=== PATIENT | female | born 1945 | race African-American/Black ===

== ENCOUNTER → 2016-11-04 | Outpatient (CLI) | payer MEDICARE, OTHER | LOC: RAD 12:30 | PROVIDERS: ATTEND Internal Medicine | DX: R51 Headache (principal) | CPT/HCPCS: 70450 ==

== ENCOUNTER → 2017-01-23 | Outpatient (CLI) | payer MEDICARE, OTHER | LOC: OD 13:57 | PROVIDERS: ATTEND Internal Medicine | DX: J18.9 Pneumonia, unspecified organism (principal) | CPT/HCPCS: 71020 ==

== ENCOUNTER 2017-05-05 17:02 | Inpatient (IN) | payer MEDICARE, OTHER ==
[2017-05-05] MEDS ORDERED: NORMAL SALINE 1000 ML 1,000 ML IV PRN ×2 (17:56→20:56)
[2017-05-05 18:39] LABS: HEMATOCRIT 39.3 % (36.0-47.0); HGB HCT DIFFERENCE -0.3; MEAN CORPUSCULAR HEMOGLOBIN 30.6 pg (27.0-33.4); MEAN CORPUSCULAR HGB CONC 33.2 g/dL (32.0-36.0); MEAN CORPUSCULAR VOLUME 92 fl (80-97); RED BLOOD COUNT 4.26 10^6/uL (3.72-5.28); RED CELL DISTRIBUTION WIDTH 13.8 % (11.5-14.0); WHITE BLOOD COUNT 13.7 10^3/uL (4.0-10.5)
[2017-05-05 18:55] LABS: ALANINE AMINOTRANSFERASE 38 U/L (9-52); ALBUMIN 4.1 g/dL (3.5-5.0); ALKALINE PHOSPHATASE 107 U/L (38-126); ANION GAP 13 (5-19); ASPARTATE AMINO TRANSFERASE 32 U/L (14-36); BILIRUBIN,DIRECT 0.4 mg/dL (0.0-0.4); BILIRUBIN,TOTAL 1.3 mg/dL (0.2-1.3); BLOOD UREA NITROGEN 16 mg/dL (7-20); CARBON DIOXIDE 24 mmol/L (22-30); CHLORIDE 100 mmol/L (98-107); CREATININE RESULT 0.94 mg/dL (0.52-1.25); GLUCOSE 161 mg/dL (75-110); POTASSIUM 3.3 mmol/L (3.6-5.0); SODIUM 136.8 mmol/L (137-145)
--- NOTE | 2017-05-05 19:21 | RADIOLOGY REPORT (SQ) ---
EXAM DESCRIPTION: CT ABD/PELVIS NO ORAL OR IV COMPLETED DATE/TIME: 05/05/2017 6:54 pm REASON FOR STUDY: ABDOMEN PAIN COMPARISON: None. TECHNIQUE: CT scan of the abdomen and pelvis performed without intravenous or oral contrast. Images reviewed with lung, soft tissue, and bone windows. Reconstructed coronal and sagittal MPR images revi ewed. All images stored on PACS. All CT scanners at this facility use dose modulation, iterative reconstruction, and/or weight based d osing when appropriate to reduce radiation dose to as low as reasonably achievable (ALARA). [facility]: Dose Right [facility]: CareDose [facility]: Dose Right [facility]: Teradose 4D [facility]: Smart i[employer] RADIATION DOSE: Up-to-date CT equipment and radiation dose reduction techniques were employed. CTDIv ol: 7.3 mGy. DLP: 343 mGy-cm.mGy. LIMITATIONS: None. FINDINGS: LOWER CHEST: No significant findings. No nodules or infiltrates. NON-CONTRASTED LIVER, SPLEEN, ADRENALS: Evaluation limited by lack of IV contrast. No identified sign ificant masses. PANCREAS: No masses. No peripancreatic inflammatory changes. GALLBLADDER: No identified stones by CT criteria. No inflammatory changes to suggest cholecystitis. RIGHT KIDNEY AND URETER: No suspicious masses. Assessment limited by lack of IV contrast. Nonobstru ctive calculi. No hydronephrosis or hydroureter. LEFT KIDNEY AND URETER: No suspicious masses. Assessment limited by lack of IV contrast. No signifi cant calcifications. No hydronephrosis or hydroureter. AORTA AND RETROPERITONEUM: No aneurysm. No retroperitoneal masses or adenopathy. BOWEL AND PERITONEAL CAVITY: No obvious masses or inflammatory changes. No free fluid. Diverticulosi s amaris APPENDIX: Not visualized. PELVIS, BLADDER, AND ABDOMINAL WALL:No abnormal masses. No free fluid. Bladder normal. BONES: No significant findings. OTHER: No other significant finding. IMPRESSION: NO SIGNIFICANT OR ACUTE PROCESS IN THE ABDOMEN OR PELVIS. Nonobstructive calculi right kidney. TECHNICAL DOCUMENTATION: JOB ID: [id number] Quality ID # [id number]: Final reports with documentation of one or more dose reduction techniques (e.g., Au tomated exposure control, adjustment of the mA and/or kV according to patient size, use of iterative reconstruction technique) 2010 [employer]- All Rights Reserved
[2017-05-05] MEDS ORDERED: DEXTROSE 50%-WATER 25 GM/50 ML DISP.SYRIN IV PRN ×2 (20:50)
[2017-05-05] MEDS ORDERED: POTASSIUM CHLORIDE 10 MEQ TABLET.SA PO ONE (20:50)
[2017-05-05] MEDS ORDERED: GLUCAGON,HUMAN RECOMB 1 MG INJ IM PRN (20:50)
[2017-05-05] MEDS ORDERED: DEXTROSE 40% GEL 15 GM TUBE PO PRN ×2 (20:50)
[2017-05-05] MEDS ORDERED: (PENDING PHARMACY ID) (Sitagliptin Phos/Metformin Hcl [Janumet Xr 100-1,000 Mg Tablet] 1 T PO SCH (21:00)
[2017-05-05] MEDS ORDERED: ASPIRIN 81 MG TABLET, ENT COATED PO ONE (22:00)
[2017-05-05 22:03] LABS: PROTHROMBIN TIME 14.3 SEC (11.4-15.4)
[2017-05-05] MEDS: SITAGLIPTIN PHOSPHATE 50 MG TABLET PO SCH (23:40)
[2017-05-05] MEDS: LEVOFLOXACIN 750 MG/D5W RTU 750 MG/150 ML RTUPB IV SCH (23:42)
[2017-05-05] MEDS: METFORMIN HCL 500 MG TABLET PO SCH (23:43)
[2017-05-05] MEDS: SIMVASTATIN 10 MG TABLET PO SCH (23:44)
[2017-05-05] MEDS: INSULIN LISPRO 100 UNIT/ML 3 ML VIAL SUBCUT PRN (23:54)
[2017-05-06] MEDS ORDERED: ACETAMINOPHEN 325 MG TABLET PO PRN (02:13)
[2017-05-06] MEDS: ONDANSETRON HCL INJ/PF 4 MG/2 ML SDV IV PRN (02:19)
[2017-05-06 07:00] LABS: APPEARANCE,URINE SLIGHTLY-CLOUDY; BILIRUBIN,URINE NEGATIVE (NEGATIVE); GLUCOSE, URINE NEGATIVE (NEGATIVE); KETONES,URINE 20 mg/dL (NEGATIVE); LEUKOCYTE ESTERASE,URINE MODERATE (NEGATIVE); NITRITE,URINE NEGATIVE (NEGATIVE); PROTEIN,URINE 30 mg/dL (NEGATIVE); URINE SPECIFIC GRAVITY 1.013
[2017-05-06] MEDS: SITAGLIPTIN PHOSPHATE 50 MG TABLET PO SCH ×2 (09:35→21:33)
[2017-05-06] MEDS: LANSOPRAZOLE 15 MG TAB.RAP.DR PO SCH (09:36)
[2017-05-06] MEDS: ASPIRIN 81 MG TABLET, ENT COATED PO SCH (09:36)
[2017-05-06] MEDS: METFORMIN HCL 500 MG TABLET PO SCH ×2 (09:36→21:34)
[2017-05-06] MEDS: ENOXAPARIN SODIUM INJ 40 MG/0.4 ML DISP.SYRIN SUBCUT SCH (09:38)
[2017-05-06] MEDS: EZETIMIBE 10 MG TABLET PO SCH (09:49)
[2017-05-06] MEDS: HYDROCHLOROTHIAZIDE 25 MG TABLET PO SCH (09:49)
--- NOTE | 2017-05-06 12:26 | PDOC H&P ---
History of Present Illness Admission Date/PCP: 05/05/17 17:02 ZIGGY LIU MD History of Present Illness: YANG AGUDELO is a 71 year old female, She came to the office for evaluation of fever, chills, lower abdominal pain. She was admitted directly from the office because I suspected sepsis syndrome in this patient, in the hospital the hemogram revealed WBC of 13,000 the dipstick urinalysis was grossly abnormal, the CAT scan of the abdomen and pelvis without contrast was done did not show any acute pathology ,presentation is more consistent with sepsis due to UTI she was brought in for observation Past Medical History Endocrine Medical History: Reports: Diabetes Mellitus Type 2 Social History Smoking Status: Former Smoker Frequency of Alcohol Use: None Hx Recreational Drug Use: No Drugs: None Hx Prescription Drug Abuse: No Family History Parental Family History Reviewed: Yes Children Family History Reviewed: Yes Sibling(s) Family History Reviewed.: Yes Medication/Allergy Home Medications: Aspirin [Ecotrin 81 mg EC Tablet] 81 mg PO DAILY 05/05/17 Ezetimibe [Zetia 10 mg Tablet] 10 mg PO DAILY 05/05/17 Hydrochlorothiazide 25 mg PO DAILY 05/05/17 Omeprazole 20 mg PO DAILY 05/05/17 Simvastatin [Zocor 10 mg Tablet] 10 mg PO QHS 05/05/17 Sitagliptin Phos/Metformin HCl [Janumet Xr 100-1,000 mg Tablet] 1 tab PO DAILY 05/05/17 Allergies/Adverse Reactions: lisinopril Allergy (Severe, Verified 05/06/17 00:19) Review of Systems Constitutional: PRESENT: anorexia, chills, fatigue, fever(s) Eyes: ABSENT: visual disturbances Ears: ABSENT: hearing changes Cardiovascular: ABSENT: chest pain, dyspnea on exertion, edema, orthropnea, palpitations Respiratory: ABSENT: cough, hemoptysis Gastrointestinal: PRESENT: abdominal pain Genitourinary: PRESENT: dysuria Musculoskeletal: ABSENT: joint swelling Integumentary: ABSENT: rash, wounds Neurological: ABSENT: abnormal gait, abnormal speech, confusion, dizziness, focal weakness, syncope Psychiatric: ABSENT: anxiety, depression, homidical ideation, suicidal ideation Endocrine: ABSENT: cold intolerance, heat intolerance, menstrual abnormalities, polydipsia, polyuria Hematologic/Lymphatic: ABSENT: easy bleeding, easy bruising, lymphadenopathy Physical Exam Vital Signs: Temp Pulse Resp BP Pulse Ox 98.4 F 65 18 98/54 L 98 05/06/17 07:04 05/06/17 07:04 05/06/17 07:04 05/06/17 07:04 05/06/17 07:04 Intake & Output 05/05/17 05/06/17 05/07/17 06:59 06:59 06:59 Intake Total 1150 Balance 1150 Weight 73.9 kg General appearance: PRESENT: no acute distress, well-developed, well-nourished Head exam: PRESENT: atraumatic, normocephalic Eye exam: PRESENT: conjunctiva pink, EOMI, PERRLA Mouth exam: PRESENT: moist, tongue midline Neck exam: PRESENT: full ROM Respiratory exam: PRESENT: clear to auscultation [place] Cardiovascular exam: PRESENT: RRR, +S1, +S2 Pulses: PRESENT: normal dorsalis pedis pul, +2 pedal pulses bilateral Vascular exam: PRESENT: normal capillary refill GI/Abdominal exam: PRESENT: normal bowel sounds, soft Rectal exam: PRESENT: deferred Neurological exam: PRESENT: alert, awake, oriented to person, oriented to place , oriented to time, oriented to situation, CN II-XII grossly intact Psychiatric exam: PRESENT: appropriate affect, normal mood Skin exam: PRESENT: dry, intact, warm Results Laboratory Results: 05/05/17 18:22 05/05/17 18:22 05/05/17 05/05/17 05/06/17 18:22 18:22 06:20 WBC 13.7 H RBC 4.26 Hgb 13.0 Hct 39.3 MCV 92 MCH 30.6 MCHC 33.2 RDW 13.8 Plt Count 197 Sodium 136.8 L Potassium 3.3 L Chloride 100 Carbon Dioxide 24 Anion Gap 13 BUN 16 Creatinine 0.94 Est GFR ( Amer) > 60 Est GFR (Non-Af Amer) 59 L Glucose 161 H Calcium 9.0 Total Bilirubin 1.3 AST 32 ALT 38 Alkaline Phosphatase 107 Total Protein 8.0 Albumin 4.1 Urine Color YELLOW Urine Appearance SLIGHTLY-CLOUDY Urine pH 6.0 Ur Specific [place] 1.013 Urine Protein 30 H Urine Glucose (UA) NEGATIVE Urine Ketones 20 H Urine Blood SMALL H Urine Nitrite NEGATIVE Ur Leukocyte Esterase MODERATE H Urine WBC (Auto) 48 Urine RBC (Auto) 4 Impressions: Abdomen/Pelvis CT 05/05/17 00:00 IMPRESSION: NO SIGNIFICANT OR ACUTE PROCESS IN THE ABDOMEN OR PELVIS. Nonobstructive calculi right kidney. Assessment & Plan - Diagnosis (1) Sepsis due to urinary tract infection Is this a current diagnosis for this admission?: YesPlan: She is empirically started on IV antibiotic for UTI associated with sepsis (2) Hypokalemia Is this a current diagnosis for this admission?: Yes
[2017-05-06 12:53] LABS: ABSOLUTE LYMPHOCYTES (AUTO) 1.5 10^3/uL (0.5-4.7); ABSOLUTE MONOCYTES (AUTO) 1.1 10^3/uL (0.1-1.4); ABSOLUTE NEUT (AUTO) 8.6 10^3/uL (1.7-8.2); BASOPHILS % (AUTO) 0.3 % (0-2); EOSINOPHILS % (AUTO) 0.2 % (0-6); HEMATOCRIT 35.7 % (36.0-47.0); HEMOGLOBIN 11.9 g/dL (12.0-15.5); LYMPHOCYTES % (AUTO) 13.5 % (13-45); MEAN CORPUSCULAR HEMOGLOBIN 30.3 pg (27.0-33.4); MEAN CORPUSCULAR HGB CONC 33.3 g/dL (32.0-36.0); MEAN CORPUSCULAR VOLUME 91 fl (80-97); MONOCYTES % (AUTO) 9.9 % (3-13); RED BLOOD COUNT 3.92 10^6/uL (3.72-5.28); RED CELL DISTRIBUTION WIDTH 14.4 % (11.5-14.0); SEGMENTED NEUTROPHILS % (AUTO) 76.1 % (42-78); WHITE BLOOD COUNT 11.3 10^3/uL (4.0-10.5)
[2017-05-06 13:14] LABS: ALANINE AMINOTRANSFERASE 32 U/L (9-52); ALBUMIN 3.5 g/dL (3.5-5.0); ALKALINE PHOSPHATASE 90 U/L (38-126); ANION GAP 10 (5-19); ASPARTATE AMINO TRANSFERASE 22 U/L (14-36); BILIRUBIN,DIRECT 0.3 mg/dL (0.0-0.4); BILIRUBIN,TOTAL 1.1 mg/dL (0.2-1.3); BLOOD UREA NITROGEN 13 mg/dL (7-20); CARBON DIOXIDE 26 mmol/L (22-30); CHLORIDE 101 mmol/L (98-107); CREATININE RESULT 0.91 mg/dL (0.52-1.25); GLUCOSE 142 mg/dL (75-110); POTASSIUM 3.6 mmol/L (3.6-5.0); SODIUM 137.2 mmol/L (137-145); TOTAL PROTEIN 6.9 g/dL (6.3-8.2)
--- NOTE | 2017-05-06 17:49 | PDOC PROGRESS REPORT ---
Subjective Progress Note for:: 05/06/17 Subjective:: Patient was admitted yesterday for evaluation of sepsis syndrome, blood culture is growing gram-negative rods, most likely from the urine. She is presently on IV antibiotic, she is responding to treatment, she was brought in initially for observation but because of septicemia , the admission will be transitioned to inpatient care from observation care. The exact pathogen is not known at this time, it would be unwise to discharge her home without knowing the exact pathogen Physical Exam Vital Signs: Temp Pulse Resp BP Pulse Ox 98.6 F 72 18 102/53 L 100 05/06/17 12:10 05/06/17 14:00 05/06/17 12:10 05/06/17 12:10 05/06/17 12:10 Intake & Output 05/05/17 05/06/17 05/07/17 06:59 06:59 06:59 Intake Total 1150 118 Output Total 200 Balance 1150 -82 Weight 73.9 kg General appearance: PRESENT: no acute distress Eye exam: PRESENT: PERRLA Respiratory exam: PRESENT: clear to auscultation [place] Cardiovascular exam: PRESENT: +S1, +S2 GI/Abdominal exam: PRESENT: soft Rectal exam: PRESENT: black stool Neurological exam: PRESENT: alert, CN II-XII grossly intact Results Laboratory Results: 05/06/17 12:40 05/06/17 12:40 05/05/17 05/05/17 05/06/17 18:22 18:22 06:20 WBC 13.7 H RBC 4.26 Hgb 13.0 Hct 39.3 MCV 92 MCH 30.6 MCHC 33.2 RDW 13.8 Plt Count 197 Seg Neutrophils % Lymphocytes % Monocytes % Eosinophils % Basophils % Absolute Neutrophils Absolute Lymphocytes Absolute Monocytes Absolute Eosinophils Absolute Basophils Sodium 136.8 L Potassium 3.3 L Chloride 100 Carbon Dioxide 24 Anion Gap 13 BUN 16 Creatinine 0.94 Est GFR ( Amer) > 60 Est GFR (Non-Af Amer) 59 L Glucose 161 H Calcium 9.0 Total Bilirubin 1.3 AST 32 ALT 38 Alkaline Phosphatase 107 Total Protein 8.0 Albumin 4.1 Urine Color YELLOW Urine Appearance SLIGHTLY-CLOUDY Urine pH 6.0 Ur Specific [place] 1.013 Urine Protein 30 H Urine Glucose (UA) NEGATIVE Urine Ketones 20 H Urine Blood SMALL H Urine Nitrite NEGATIVE Ur Leukocyte Esterase MODERATE H Urine WBC (Auto) 48 Urine RBC (Auto) 4 05/06/17 05/06/17 12:40 12:40 WBC 11.3 H RBC 3.92 Hgb 11.9 L Hct 35.7 L MCV 91 MCH 30.3 MCHC 33.3 RDW 14.4 H Plt Count 178 Seg Neutrophils % 76.1 Lymphocytes % 13.5 Monocytes % 9.9 Eosinophils % 0.2 Basophils % 0.3 Absolute Neutrophils 8.6 H Absolute Lymphocytes 1.5 Absolute Monocytes 1.1 Absolute Eosinophils 0.0 Absolute Basophils 0.0 Sodium 137.2 Potassium 3.6 Chloride 101 Carbon Dioxide 26 Anion Gap 10 BUN 13 Creatinine 0.91 Est GFR ( Amer) > 60 Est GFR (Non-Af Amer) > 60 Glucose 142 H Calcium 9.0 Total Bilirubin 1.1 AST 22 ALT 32 Alkaline Phosphatase 90 Total Protein 6.9 Albumin 3.5 Urine Color Urine Appearance Urine pH Ur Specific [place] Urine Protein Urine Glucose (UA) Urine Ketones Urine Blood Urine Nitrite Ur Leukocyte Esterase Urine WBC (Auto) Urine RBC (Auto) Impressions: Abdomen/Pelvis CT 05/05/17 00:00 IMPRESSION: NO SIGNIFICANT OR ACUTE PROCESS IN THE ABDOMEN OR PELVIS. Nonobstructive calculi right kidney. Assessment & Plan - Diagnosis (1) Sepsis due to urinary tract infection Is this a current diagnosis for this admission?: Yes (2) Hypokalemia Is this a current diagnosis for this admission?: Yes (3) Gram negative septicemia Is this a current diagnosis for this admission?: YesPlan: She will continue the intravenous Levaquin until culture results return and prove otherwise
[2017-05-06] MEDS: LEVOFLOXACIN 750 MG/D5W RTU 750 MG/150 ML RTUPB IV SCH (21:32)
[2017-05-06] MEDS: SIMVASTATIN 10 MG TABLET PO SCH (21:34)
[2017-05-07] MEDS: ONDANSETRON HCL INJ/PF 4 MG/2 ML SDV IV PRN (02:00)
[2017-05-07] MEDS: HYDROCHLOROTHIAZIDE 25 MG TABLET PO SCH (10:10)
[2017-05-07] MEDS: EZETIMIBE 10 MG TABLET PO SCH (10:11)
[2017-05-07] MEDS: METFORMIN HCL 500 MG TABLET PO SCH ×2 (10:11→21:47)
[2017-05-07] MEDS: ASPIRIN 81 MG TABLET, ENT COATED PO SCH (10:11)
[2017-05-07] MEDS: SITAGLIPTIN PHOSPHATE 50 MG TABLET PO SCH ×2 (10:11→21:47)
[2017-05-07] MEDS: LANSOPRAZOLE 15 MG TAB.RAP.DR PO SCH (10:11)
[2017-05-07] MEDS: ENOXAPARIN SODIUM INJ 40 MG/0.4 ML DISP.SYRIN SUBCUT SCH (10:12)
[2017-05-07] MEDS: INSULIN LISPRO 100 UNIT/ML 3 ML VIAL SUBCUT PRN (11:45)
--- NOTE | 2017-05-07 16:14 | Physician Advisory Note ---
Physician Advisor ProgressNote .: Pursuant to the plan for [facility], I have reviewed the medical record for this patient. Physician Advisor Statement: Please consider documentin. Reasons for suspecting sepsis - If there was any AMS/decreased GCS, please document it! - Please avoid using terms "sepsis syndrome" and "septicemia", which are confusing to coders. - Pt came in w/leukocytosis, tachycardia in 90s, tachypnea of 24, BP that was initially WNL and then consistently dropped to 98/54 (MAP 65), shortly showing fever of 102.0, so she met Sepsis-2 criteria for the dx. She scored 1 (not 2+) on the Sepsis-3 criteria, but did meet the qSOFA criteria. - Was she treated with Sepsis protocol? If so, this supports the dx. If not, it does not. 2. "Mild Acute hyponatremia, likely due to " Thanks! CK
--- NOTE | 2017-05-07 18:37 | PDOC PROGRESS REPORT ---
Subjective Progress Note for:: 05/07/17 Subjective:: She was seen by the bedside, on IV antibiotic, she has a relative low blood pressure today she is on IV fluid therapy. Physical Exam Vital Signs: Temp Pulse Resp BP Pulse Ox 98.1 F 65 20 113/54 L 100 05/07/17 11:01 05/07/17 14:00 05/07/17 11:01 05/07/17 11:01 05/07/17 11:01 Intake & Output 05/06/17 05/07/17 05/08/17 06:59 06:59 06:59 Intake Total 1150 2669 200 Output Total 1450 Balance 1150 1219 200 Weight 73.9 kg 76.1 kg General appearance: PRESENT: no acute distress Eye exam: PRESENT: PERRLA Respiratory exam: PRESENT: clear to auscultation [place] Cardiovascular exam: PRESENT: +S1, +S2 GI/Abdominal exam: PRESENT: soft Neurological exam: PRESENT: alert Results Laboratory Results: 05/06/17 12:40 05/06/17 12:40 05/06/17 06:20 Clean Catch Midstream Urine Culture - Final Mixed Urogenital [place] Impressions: Abdomen/Pelvis CT 05/05/17 00:00 IMPRESSION: NO SIGNIFICANT OR ACUTE PROCESS IN THE ABDOMEN OR PELVIS. Nonobstructive calculi right kidney. Assessment & Plan - Diagnosis (1) Sepsis due to urinary tract infection Is this a current diagnosis for this admission?: YesPlan: She will continue IV antibiotic (2) Hypokalemia Is this a current diagnosis for this admission?: Yes (3) Gram negative septicemia Is this a current diagnosis for this admission?: Yes
[2017-05-07 21:37] LABS: ANION GAP 10 (5-19); BLOOD UREA NITROGEN 15 mg/dL (7-20); CALCIUM 9.1 mg/dL (8.4-10.2); CARBON DIOXIDE 27 mmol/L (22-30); CHLORIDE 97 mmol/L (98-107); CREATININE RESULT 1.02 mg/dL (0.52-1.25); GLUCOSE 120 mg/dL (75-110); SODIUM 134.3 mmol/L (137-145)
[2017-05-07] MEDS: SIMVASTATIN 10 MG TABLET PO SCH (21:47)
[2017-05-07] MEDS: LEVOFLOXACIN 750 MG/D5W RTU 750 MG/150 ML RTUPB IV SCH (21:47)
[2017-05-08] MEDS: ENOXAPARIN SODIUM INJ 40 MG/0.4 ML DISP.SYRIN SUBCUT SCH (10:39)
[2017-05-08] MEDS: HYDROCHLOROTHIAZIDE 25 MG TABLET PO SCH (10:40)
[2017-05-08] MEDS: SITAGLIPTIN PHOSPHATE 50 MG TABLET PO SCH (10:40)
[2017-05-08] MEDS: METFORMIN HCL 500 MG TABLET PO SCH (10:40)
[2017-05-08] MEDS: ASPIRIN 81 MG TABLET, ENT COATED PO SCH (10:40)
[2017-05-08] MEDS: LANSOPRAZOLE 15 MG TAB.RAP.DR PO SCH (10:40)
[2017-05-08 12:23] LABS: ABSOLUTE BASOPHILS # (AUTO) 0.1 10^3/uL (0.0-0.2); ABSOLUTE LYMPHOCYTES (AUTO) 1.7 10^3/uL (0.5-4.7); ABSOLUTE MONOCYTES (AUTO) 0.8 10^3/uL (0.1-1.4); ABSOLUTE NEUT (AUTO) 3.4 10^3/uL (1.7-8.2); BASOPHILS % (AUTO) 1.2 % (0-2); EOSINOPHILS % (AUTO) 0.7 % (0-6); HEMOGLOBIN 12.1 g/dL (12.0-15.5); HGB HCT DIFFERENCE 0.3; LYMPHOCYTES % (AUTO) 28.4 % (13-45); MEAN CORPUSCULAR HEMOGLOBIN 30.5 pg (27.0-33.4); MEAN CORPUSCULAR HGB CONC 33.8 g/dL (32.0-36.0); MEAN CORPUSCULAR VOLUME 90 fl (80-97); MONOCYTES % (AUTO) 13.3 % (3-13); RED BLOOD COUNT 3.99 10^6/uL (3.72-5.28); RED CELL DISTRIBUTION WIDTH 13.8 % (11.5-14.0); SEGMENTED NEUTROPHILS % (AUTO) 56.4 % (42-78)
[2017-05-08 12:56] LABS: ALANINE AMINOTRANSFERASE 28 U/L (9-52); ALBUMIN 3.6 g/dL (3.5-5.0); ALKALINE PHOSPHATASE 85 U/L (38-126); ANION GAP 14 (5-19); ASPARTATE AMINO TRANSFERASE 15 U/L (14-36); BILIRUBIN,DIRECT 0.4 mg/dL (0.0-0.4); BILIRUBIN,TOTAL 0.7 mg/dL (0.2-1.3); BLOOD UREA NITROGEN 15 mg/dL (7-20); CALCIUM 9.3 mg/dL (8.4-10.2); CARBON DIOXIDE 24 mmol/L (22-30); CHLORIDE 99 mmol/L (98-107); CREATININE RESULT 0.89 mg/dL (0.52-1.25); GLUCOSE 108 mg/dL (75-110); SODIUM 136.6 mmol/L (137-145)
[2017-05-08 12:57] LABS: POTASSIUM 3.9 mmol/L (3.6-5.0)
[2017-05-08] MEDS: INSULIN LISPRO 100 UNIT/ML 3 ML VIAL SUBCUT PRN (13:35)
[2017-05-08] MEDS: EZETIMIBE 10 MG TABLET PO SCH (13:35)
[2017-05-08 16:58] VITALS: BP 103/59
--- NOTE | 2017-05-08 19:45 | PDOC DISCHARGE SUMMARY ---
General - Admit/Disc Date/PCP Admission Date/Primary Care Provider: 05/06/17 17:49 ZIGGY LIU MD Discharge Date: 05/08/17 - Discharge Diagnosis (1) Septicemia due to Klebsiella pneumoniae Is this a current diagnosis for this admission?: Yes (2) Sepsis due to urinary tract infection Is this a current diagnosis for this admission?: Yes (3) Hypokalemia Is this a current diagnosis for this admission?: Yes (4) Gram negative septicemia Is this a current diagnosis for this admission?: Yes (5) Klebsiella pneumoniae sepsis Is this a current diagnosis for this admission?: Yes - Additional Information Discharge Diet: Cardiac, Diabetic Discharge Activity: Activity As Tolerated, Balance Activity w/Rest Home Medications: Aspirin [Ecotrin 81 mg EC Tablet] 81 mg PO DAILY 05/05/17 Ezetimibe [Zetia 10 mg Tablet] 10 mg PO DAILY 05/05/17 Hydrochlorothiazide 25 mg PO DAILY 05/05/17 Omeprazole 20 mg PO DAILY 05/05/17 Simvastatin [Zocor 10 mg Tablet] 10 mg PO QHS 05/05/17 Sitagliptin Phos/Metformin HCl [Janumet Xr 100-1,000 mg Tablet] 1 tab PO DAILY 05/05/17 Levofloxacin [Levaquin 750 mg Tablet] 750 mg PO DAILY #10 tab 05/08/17 History of Present Illness History of Present Illness: YANG AGUDELO is a 71 year old female, She came to the office for evaluation of fever, chills, lower abdominal pain. She was admitted directly from the office because I suspected sepsis syndrome in this patient, in the hospital the hemogram revealed WBC of 13,000 the dipstick urinalysis was grossly abnormal, the CAT scan of the abdomen and pelvis without contrast was done did not show any acute pathology ,presentation is more consistent with sepsis due to UTI she was brought in for observation Hospital Course Hospital Course: Patient was admitted for the management of septicemia due to Klebsiella pneumonia, the source of the infection is thought to be the urine. She was treated with IV Levaquin, on admission she had leukocytosis, fever that suggest sepsis. Patient did respond to IV antibiotic. The exact pathologen was identified today, she will be discharged home today on p.o. Levaquin for 10 more days Physical Exam Vital Signs: Temp Pulse Resp BP Pulse Ox 98.2 F 59 L 19 103/59 L 98 05/08/17 18:31 05/08/17 18:31 05/08/17 18:31 05/08/17 18:31 05/08/17 18:31 Intake & Output 05/07/17 05/08/17 05/09/17 06:59 06:59 06:59 Intake Total 2669 3405 150 Output Total 1450 950 600 Balance 1219 2455 -450 Weight 76.1 kg 75.1 kg General appearance: PRESENT: no acute distress, well-developed, well-nourished Head exam: PRESENT: atraumatic, normocephalic Eye exam: PRESENT: conjunctiva pink, EOMI, PERRLA Ear exam: PRESENT: normal external ear exam Mouth exam: PRESENT: moist, tongue midline Neck exam: PRESENT: full ROM Respiratory exam: PRESENT: clear to auscultation [place] Cardiovascular exam: PRESENT: RRR, +S1, +S2 Vascular exam: PRESENT: normal capillary refill GI/Abdominal exam: PRESENT: normal bowel sounds, soft Rectal exam: PRESENT: deferred Neurological exam: PRESENT: alert, awake, oriented to person, oriented to place , oriented to time, oriented to situation, CN II-XII grossly intact Psychiatric exam: PRESENT: appropriate affect, normal mood Skin exam: PRESENT: dry, intact, warm Results Laboratory Results: 05/08/17 12:17 05/08/17 12:17 05/07/17 05/08/17 05/08/17 21:07 12:17 12:17 WBC 6.0 RBC 3.99 Hgb 12.1 Hct 36.0 MCV 90 MCH 30.5 MCHC 33.8 RDW 13.8 Plt Count 222 Seg Neutrophils % 56.4 Lymphocytes % 28.4 Monocytes % 13.3 H Eosinophils % 0.7 Basophils % 1.2 Absolute Neutrophils 3.4 Absolute Lymphocytes 1.7 Absolute Monocytes 0.8 Absolute Eosinophils 0.0 Absolute Basophils 0.1 Sodium 134.3 L 136.6 L Potassium 4.0 3.9 Chloride 97 L 99 Carbon Dioxide 27 24 Anion Gap 10 14 BUN 15 15 Creatinine 1.02 0.89 Est GFR ( Amer) > 60 > 60 Est GFR (Non-Af Amer) 54 L > 60 Glucose 120 H 108 Calcium 9.1 9.3 Total Bilirubin 0.7 AST 15 ALT 28 Alkaline Phosphatase 85 Total Protein 7.0 Albumin 3.6 05/05/17 19:25 Blood Blood Culture - Final Klebsiella Pneumoniae Impressions: Abdomen/Pelvis CT 05/05/17 00:00 IMPRESSION: NO SIGNIFICANT OR ACUTE PROCESS IN THE ABDOMEN OR PELVIS. Nonobstructive calculi right kidney.
[2017-05-09] MEDS ORDERED: LANSOPRAZOLE 15 MG TAB.RAP.DR PO SCH (08:00)
== END 2017-05-08 19:28 | disposition home or self-care (01) | DRG 872 ==
LOC: INTOOBSV 17:02 → 3S 17:02 → OBSVTOIN 05-06 17:49
PROVIDERS: ADMIT Internal Medicine; ATTEND Internal Medicine
DX: A41.89 Other specified sepsis (principal); N39.0 Urinary tract infection, site not specified; E11.9 Type 2 diabetes mellitus without complications; E87.6 Hypokalemia; B96.1 Klebsiella pneumoniae [K. pneumoniae] as the cause of diseases classified elsewhere; Z87.891 Personal history of nicotine dependence; Z79.82 Long term (current) use of aspirin; Z88.8 Allergy status to other drugs, medicaments and biological substances
CPT/HCPCS: 36415; 74176; 80048; 80053; 80076; 81001; 82962; 83036; 85025; 85027; 85610; 85730; 87040; 87077; 87086; 87186; G0378; G0379; J1650; J1815; J1956; J2405; J7030

== ENCOUNTER → 2017-06-30 | Outpatient (CLI) | payer MEDICARE, OTHER ==
--- NOTE | 2017-06-30 18:34 | RADIOLOGY REPORT (SQ) ---
EXAM DESCRIPTION: CT ABD/PELVIS WITH IV ONLY COMPLETED DATE/TIME: 06/30/2017 6:00 pm REASON FOR STUDY: GENERALIZED ABDOMINAL PAIN R10.84 GENERALIZED ABDOMINAL PAIN COMPARISON: Non contrasted CT of the abdomen and pelvis dated April 2017 TECHNIQUE: CT scan of the abdomen and pelvis performed using helical scanning technique with dynamic intravenous contrast injection. No oral contrast. Images reviewed with lung, soft tissue, and bone windows. Reconstructed coronal and sagittal MPR images reviewed. Delayed images for evaluation of the urinary system also acquired. All images stored on PACS. All CT scanners at this facility use dose modulation, iterative reconstruction, and/or weight based d osing when appropriate to reduce radiation dose to as low as reasonably achievable (ALARA). [facility]: Dose Right [facility]: CareDose [facility]: Dose Right [facility]: Teradose 4D [facility]: [employer] CONTRAST TYPE AND DOSE: contrast/concentration: Isovue 370.00 mg/ml; Total Contrast Delivered: 76.0 ml; Total Saline Delivered: 42.0 ml RENAL FUNCTION: Creatinine 1.0 RADIATION DOSE: Up-to-date CT equipment and radiation dose reduction techniques were employed. CTDIv ol: 7.5 - 10.6 mGy. DLP: 851 mGy-cm.. LIMITATIONS: None. FINDINGS: LOWER CHEST: No significant findings. No nodules or infiltrates. LIVER: Normal size. No masses. No dilated ducts. SPLEEN: Normal size. No focal lesions. PANCREAS: No masses. No significant calcifications. No adjacent inflammation or peripancreatic fluid collections. Pancreatic duct not dilated. GALLBLADDER: No identified stones by CT criteria. No inflammatory changes to suggest cholecystitis. ADRENAL GLANDS: No significant masses or asymmetry. RIGHT KIDNEY AND URETER: No solid masses. Couple small well demarcated low density areas are identif ied which are too small to further characterize by CT. Nonobstructing renal calculus is again identi fied. No hydronephrosis or hydroureter. LEFT KIDNEY AND URETER: No solid masses. No significant calcifications. No hydronephrosis or hydr oureter. 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 Small parapelvic cysts are identifi ed. AORTA AND VESSELS: No aneurysm. No dissection. There is some mild ectasia of the abdominal aorta wit h vascular calcifications. Renal arteries, SMA, celiac without stenosis. RETROPERITONEUM: No retroperitoneal adenopathy, hemorrhage or masses. BOWEL AND PERITONEAL CAVITY: There is thickening of the de la torre of a segment of sigmoid colon with mini mal edematous or inflammatory changes in the adjacent mesenteric fat. Multiple diverticula are ident ified in the appearance is consistent with diverticulitis. A linear radiopaque density is identified in the cecum presumably representing an ingested substance. APPENDIX: Not identified PELVIS: No mass. No free fluid. Normal bladder. ABDOMINAL WALL: No masses. No hernias. BONES: No significant or acute findings. OTHER: No other significant finding. IMPRESSION: Findings consistent with diverticulitis involving the sigmoid colon. Other findings as noted above TECHNICAL DOCUMENTATION: JOB ID: [id number] Quality ID # [id number]: Final reports with documentation of one or more dose reduction techniques (e.g., Au tomated exposure control, adjustment of the mA and/or kV according to patient size, use of iterative reconstruction technique) 2010 [employer]- All Rights Reserved
== END ==
LOC: RAD 17:29
PROVIDERS: ATTEND Internal Medicine
DX: R10.84 Generalized abdominal pain (principal)
CPT/HCPCS: 74177; 82565

== ENCOUNTER → 2018-02-12 | Outpatient (CLI) | payer MEDICARE, OTHER ==
[~2018-02-12] MED LIST: AMINOPHYLLINE INJ/PF 250 MG/10 ML SDV IV ONE; REGADENOSON INJ 0.4 MG/5 ML DISP.SYRIN IV ONE
--- NOTE | 2018-02-13 08:52 | DRAGON STRESS TEST REPORT ---
INTRAVENOUS LEXISCAN CARDIOLITE STRESS TEST USING SINGLE PHOTON EMMISION COMPUTERIZED TOMOGRAPHIC. DATE OF PROCEDURE: February 12, 2018, INDICATION : Chest pain CARDIAC RISK FACTORS: Diabetes, hypertension, dyslipidemia RESTING EKG: Sinus rhythm without any significant baseline ST-T wave changes STRESS EKG: No significant ST segment changes noted with LexiScan bolus REASON FOR TERMINATION: Protocol. PROCEDURE REPORT: Baseline heart rate 63 beats per minute with blood pressure of 124/78. Patient had no significant complaints. Patient was bolused with Lexiscan 0.4 mg intravenously followed by saline bolus. Heart rate at 2 minutes post bolus 88 with a blood pressure of 134/79. 3 minutes post bolus heart rate 75 with blood pressure of 144/78. No significant EKG changes were noted. Patient had no significant complaints during the procedure or postprocedure. Patient injected with Aminophyllin 75 mg at 3 minutes or later after Lexiscan bolus. CONCLUSIONS: Normal EKG and hemodynamic response to IV LexiScan. NUCLEAR DATA: At rest the patient was given 10.85 millicuries of technetium 99 sestamibi injected intravenously. As per protocol rest gated SPECT images were obtained. On day of stress test, the patient was given intravenous LexiScan at a dose of 0.4 mg in 5 mL intravenously, followed by flush with normal saline. Subsequently the stress dose of 32.6 millicuries of technetium 99 sestamibi was injected intravenously. As per protocol stress gated images were obtained. NUCLEAR INTERPRETATION: Both raw and processed data were used for interpretation. Visual, qualitative, computer-generated quantitative data was used. There was good myocardial uptake of technetium compound. Motion artifact and soft tissue attenuations were noted. Breast attenuation artifact was noted in the mid and distal anterior wall. There were no corresponding wall motion abnormalities. Attenuation corrected images showed no perfusion defect. Increased visceral uptake was noted. No definitive areas of transient perfusion defect noted, No definitive areas of fixed perfusion defect or scars noted. EKG gated imaging showed LV EF at 75 %, rest and stress gated EF similar visually. T. I D. ratio was 1.27. Lung heart ratio noted to be within normal limits 0.28. No significant extracardiac and abnormal radiotracer activities were noted. RV free wall uptake was noted to be WNL. IMPRESSION: Also refer to comments under nuclear interpretation. Also test results needs to be interpreted in the context of pretest probability. 1. No definitive areas of transient perfusion defect noted. 2. There is no definitive scintigraphic evidence of myocardial infarction/scar. 3. EKG gated imaging shows left ventricular ejection fraction of approx. 75 %. 4. Clinical correlation requested as occasionally single vessel disease or balanced ischemia could be missed. In approximately 10% of the cases Lexiscan may not cause adequate vasodilatory stress. RECOMMENDATIONS: Aggressive risk factor modification and medical management. Further evaluation may be needed if continued symptoms or other high risk indicators are noted on clinical evaluation. Close cardiology follow-up is also recommended. Clinical correlation with echocardiogram derived ejection fraction. Inability to exercise by itself can lead to increased cardiovascular event risks. Consider cardiology consultation and or follow-up if clinically indicated. I am available for cardiology evaluation and consultation if requested by the yard brakeman, unless patient already has a city controller. KIMBERLY
== END ==
LOC: RAD 08:01
PROVIDERS: ATTEND Internal Medicine
DX: R07.9 Chest pain, unspecified (principal); I10 Essential (primary) hypertension; E11.9 Type 2 diabetes mellitus without complications; E78.5 Hyperlipidemia, unspecified
CPT/HCPCS: 93017; 78452; A9500; J2785; J0280; Q9969

== ENCOUNTER → 2018-11-20 | Outpatient (CLI) | payer MEDICARE, OTHER ==
--- NOTE | 2018-11-23 14:24 | WOMENS IMAGING REPORT ---
EXAM DESCRIPTION: 3D SCREENING MAMMO BILAT COMPLETED DATE/TIME: 11/23/2018 1:25 pm REASON FOR STUDY: ROUTINE 3D BILATERAL SCREENING,Z12.31 Z12.31 ENCNTR SCREEN MAMMOGRAM FOR MALIGNAN T NEOPLASM OF NO COMPARISON: None. TECHNIQUE: Standard craniocaudal and mediolateral oblique views of each breast recorded using digita l acquisition and breast tomosynthesis. LIMITATIONS: None. FINDINGS: No masses, calcifications or architectural distortion. No areas of suspicion. Read with the assistance of CAD. .[facility] - R2 Cenova Version 1.3 .[facility] - R2 Cenova Version 2.1 .[facility] - R2 Cenova Version 2.4 .[facility] [place] R2 Cenova Version 2.4 .[facility] - R2 Chairman Ceo Version 9.2 IMPRESSION: NORMAL MAMMOGRAM. BIRADS 1. BREAST DENSITY: b. There are scattered areas of fibroglandular density. BIRAD: 1 NEGATIVE RECOMMENDATION: ROUTINE SCREENING COMMENT: The patient has been notified of the results by letter per SA requirements. Additional no tification policies are in place for contacting patient with suspicious or incomplete findings. Quality ID #[id number]: The [employer] recommends an annual screening mammogram for women aged 40 years or over. This facility utilizes a reminder system to ensure that all patients receive reminder letters, and/or direct phone calls for appointments. This includes reminders for routine scr eening mammograms, diagnostic mammograms, or other Breast Imaging Interventions when appropriate. Th is patient will be placed in the appropriate reminder system. The [employer] (ACR) has developed recommendations for screening MRI of the breast s in certain patient populations, to be used in conjunction with mammography. Breast MRI surveillanc e may be appropriate for women with more than 20% lifetime risk of developing breast cancer as deter mined by genetic testing, significant family history of the disease, or history of mantle radiation f or Hodgkins Disease. ACR Practice Guidelines 2008. DBT Technology DBT is a type of tomographic mammography. With conventional mammography, overlapping breast tissue ma y make lesions difficult to detect, even with good compression. DBT uses an x-ray tube that rotates a round the breast, taking images at different angles. These images are then combined to create thin sl ices of the breast that the radiologist can view as a 3D reconstruction. The [employer] unit can perform full-field digital mammograms (2D imaging); or DBT (3D imaging); or both, in a combination mode that quickly performs both the mammogram and the tomosynthesis scan while the breast is still compressed. PQRS 6045F: Fluoroscopic imaging is not utilized for breast tomosynthesis. TECHNICAL DOCUMENTATION: FINDING NUMBER: (1) ASSESSMENT: (1) JOB ID: [id number] [employer]- All Rights Reserved Reading location - IP/workstation name: [facility]-
== END ==
LOC: WI 14:23
PROVIDERS: ATTEND Internal Medicine
DX: Z12.31 Encounter for screening mammogram for malignant neoplasm of breast (principal)
CPT/HCPCS: 77063; 77067

== ENCOUNTER 2019-03-16 06:54 | Day surgery (SDC) | payer MEDICARE ==
[~2019-03-16 06:54] MED LIST changes: -AMINOPHYLLINE INJ/PF 250 MG/10 ML SDV IV ONE; +BUPIVACAINE HCL 0.75% INJ/PF (7.5 MG/1 ML) 10 ML SDV OD PRN; +KETOROLAC TROMETHAMINE 0.45% 4 DROP/0.4 ML DROPERETTE OD PRN; +LIDOCAINE 4% INJ/PF (40 MG/ML) 5 ML AMPUL OD PRN; -REGADENOSON INJ 0.4 MG/5 ML DISP.SYRIN IV ONE
[2019-03-16] MEDS: CYCLOPENTOLATE 0.2%/PHENYLEPHRINE 1% OPH SOLN 2 ML OD PRN ×3 (07:05→07:25)
[2019-03-16] MEDS: TETRACAINE HCL 0.5% OPH SOLN 0.6 ML DROPERETTE OD PRN ×2 (07:05→07:25)
[2019-03-16] MEDS: BESIFLOXACIN HCL 0.6% OPH SUSP 5 ML BOTTLE OD PRN ×4 (07:05→07:52)
[2019-03-16] MEDS: TROPICAMIDE 1% OPH SOLN 3 ML OD PRN ×3 (07:05→07:25)
[2019-03-16] MEDS ORDERED: MIDAZOLAM 2 MG/2 ML INJ ONE (07:08)
[2019-03-16] MEDS ORDERED: EPINEPHRINE INJ/PF 1 MG/1 ML AMPULE ONE (07:23)
[2019-03-16] MEDS ORDERED: CHONDR SU A NA/HYALUR INTRAOC KIT (SURGICARE) ONE (07:24)
[2019-03-16] MEDS ORDERED: LIDOCAINE 1% INJ-PF (10 MG/ML) 30 ML SDV ONE (07:24)
[2019-03-16] MEDS: DORZOLAMIDE HCL 2%/TIMOLOL MALEAT 0.5% OPH SOLN 10 ML OD PRN ×2 (07:52)
--- NOTE | 2019-03-16 08:15 | [facility] DISCHARGE SUMMARY E ---
[facility] Discharge Summary NAME: YANG AGUDELO AGE: 73Y ADMITTED: 03/16/2019 DISCHARGED: 03/16/2019 FINAL DIAGNOSIS: Cataract, right eye. HOSPITAL COURSE: The patient is a 73-year-old lady who underwent uneventful cataract extraction with intraocular lens implant, right eye, on 03/16/2019. She will be discharged to home. She was instructed to resume preoperative medications; to take Tylenol as needed for discomfort; to keep her eye shielded; to use Besivance, Prolensa, and Durezol at 3 p.m. and 8 p.m.; and to follow up in my office in 1 day. DICTATING PHYSICIAN: CHRISTINA BROUSSARD M.D. [id number] PHY#: [id number] ID: [id number] JOB#: [id number] ACCT: [id number] cc:CHRISTINA BROUSSARD M.D. >
--- NOTE | 2019-03-16 08:15 | [facility] OPERATIVE REPORT E ---
[facility] Operative Report NAME: YANG AGUDELO AGE: 73Y DATE OF SURGERY: 03/16/2019 ROOM: PREOPERATIVE DIAGNOSIS: Cataract, right eye. POSTOPERATIVE DIAGNOSIS: Cataract, right eye. PROCEDURE PERFORMED: Phacoemulsification with posterior chamber intraocular lens, right eye. SURGEON: CHRISTINA BROUSSARD M.D. ANESTHESIA: Topical with MAC. INDICATIONS FOR SURGERY: Difficulty reading road signs and words on TV. Best corrected visual acuity 20/50. PROCEDURE: The patient was brought to the operating room and placed on the operative table. Following tetracaine drops, topical anesthesia was administered. This consisted of instrument wipe pledgets soaked in a solution of 4% Xylocaine mixed with 0.75% Marcaine in a 1:2 ratio. A 2 x 1 cm pledget was placed in the superior fornix. A 1 x 1 cm pledget was placed in the inferior fornix. The eye was patched shut for 5 minutes. The patch was removed. The eye was sterilely prepped and draped in the usual manner. Lid speculum was placed in the eye. The pledgets were removed and 4-0 black silk sutures were placed around the superior and the inferior rectus muscles to be used as traction. A conjunctival peritomy was made at the 10 o'clock position. Hemostasis was obtained with bipolar cautery. A posterior limbal groove was created using a crescent knife and dissected anteriorly towards the cornea. A sharp point blade was used to create a paracentesis site at the 2 o'clock position. A 2.4 mm keratome was used to enter the anterior chamber through the groove. Viscoelastic was injected into the anterior chamber. An anterior capsulotomy was performed using Utrata forceps in a capsulorrhexis fashion. Hydrodissection and hydrodelineation were performed. Phacoemulsification was performed in mixdor-igu-jmocavh technique. Total phaco time was 11.57 CDE. Following this, the I/A unit was used to remove residual cortex. Viscoelastic was injected into the capsular bag. Intraocular lens model SN60WF, 20.5 diopters, serial number [id number], was placed in the capsular bag. The I/A unit was used to remove residual viscoelastic. The wound was seen to be watertight under high and low pressure, and no sutures were placed. The intraocular lens was well centered. The pressure was adjusted in the eye to normal pressure. The 4-0 black silk sutures and lid speculum were removed. The eye was shielded after Besivance drops were placed. The patient tolerated the procedure well and was sent to the recovery room in good condition. DICTATING PHYSICIAN: CHRISTINA BROUSSARD M.D. [id number] PHY#: [id number] ID: [id number] JOB#: [id number] ACCT: [id number] cc:CHRISTINA BROUSSARD M.D. >
== END 2019-03-16 08:40 | disposition home or self-care (01) ==
LOC: SC 06:54
PROVIDERS: ATTEND Ophthalmology
DX: H25.811 Combined forms of age-related cataract, right eye (principal); H10.45 Other chronic allergic conjunctivitis; H43.812 Vitreous degeneration, left eye; H35.363 Drusen (degenerative) of macula, bilateral; K21.9 Gastro-esophageal reflux disease without esophagitis; E11.9 Type 2 diabetes mellitus without complications; Z79.899 Other long term (current) drug therapy; I10 Essential (primary) hypertension; Z79.84 Long term (current) use of oral hypoglycemic drugs; Z79.82 Long term (current) use of aspirin
CPT/HCPCS: 66984; 82962; V2632; J2250; J3490 ×4; A9270; J0171

== ENCOUNTER 2019-04-06 06:25 | Day surgery (SDC) | payer MEDICARE ==
[~2019-04-06 06:25] MED LIST changes: -BUPIVACAINE HCL 0.75% INJ/PF (7.5 MG/1 ML) 10 ML SDV OD PRN; +BUPIVACAINE HCL 0.75% INJ/PF (7.5 MG/1 ML) 10 ML SDV OS PRN; -KETOROLAC TROMETHAMINE 0.45% 4 DROP/0.4 ML DROPERETTE OD PRN; +KETOROLAC TROMETHAMINE 0.45% 4 DROP/0.4 ML DROPERETTE OS PRN; -LIDOCAINE 4% INJ/PF (40 MG/ML) 5 ML AMPUL OD PRN; +LIDOCAINE 4% INJ/PF (40 MG/ML) 5 ML AMPUL OS PRN
[2019-04-06] MEDS: TETRACAINE HCL 0.5% OPH SOLN 0.6 ML DROPERETTE OS PRN ×2 (06:48→07:19)
[2019-04-06] MEDS: TROPICAMIDE 1% OPH SOLN 3 ML OS PRN ×3 (06:49→07:15)
[2019-04-06] MEDS: CYCLOPENTOLATE 0.2%/PHENYLEPHRINE 1% OPH SOLN 2 ML OS PRN ×3 (06:49→07:15)
[2019-04-06] MEDS: BESIFLOXACIN HCL 0.6% OPH SUSP 5 ML BOTTLE OS PRN ×4 (06:49→07:56)
[2019-04-06] MEDS ORDERED: EPINEPHRINE INJ/PF 1 MG/1 ML AMPULE ONE (07:08)
[2019-04-06] MEDS ORDERED: CHONDR SU A NA/HYALUR INTRAOC KIT (SURGICARE) ONE (07:09)
[2019-04-06] MEDS ORDERED: LIDOCAINE 1% INJ-PF (10 MG/ML) 30 ML SDV ONE (07:09)
[2019-04-06] MEDS ORDERED: MIDAZOLAM 2 MG/2 ML INJ ONE (07:14)
[2019-04-06] MEDS: DORZOLAMIDE HCL 2%/TIMOLOL MALEAT 0.5% OPH SOLN 10 ML OS PRN ×2 (07:56)
--- NOTE | 2019-04-06 10:04 | [facility] OPERATIVE REPORT E ---
[facility] Operative Report NAME: YANG AGUDELO AGE: 73Y DATE OF SURGERY: 04/06/2019 ROOM: PREOPERATIVE DIAGNOSIS: CATARACT, LEFT EYE. POSTOPERATIVE DIAGNOSIS: CATARACT, LEFT EYE. PROCEDURE PERFORMED: PHACOEMULSIFICATION WITH POSTERIOR CHAMBER INTRAOCULAR LENS, LEFT EYE. SURGEON: CHRISTINA BROUSSARD MD ANESTHESIA: TOPICAL WITH MAC. INDICATIONS FOR SURGERY: Difficulty reading road signs and small print. Best corrected visual acuity 20/40. PROCEDURE: The patient was brought to the Operating Room and placed on the operative table. Following tetracaine drops, topical anesthesia was administered. This consisted of instrument wipe pledgets soaked in a solution of 4% Xylocaine mixed with 0.75% Marcaine in a 1:2 ratio. A 2 x 1 cm pledget was placed in the superior fornix. A 1 x 1 cm pledget was placed in the inferior fornix. The eye was patched shut for 5 minutes. The patch was removed. The eye was sterilely prepped and draped in the usual manner. Lid speculum was placed in the eye. The pledgets were removed. 4-0 black silk sutures were placed around the superior and the inferior rectus muscles to be used as traction. A conjunctival peritomy was made at the 10 o'clock position. Hemostasis was obtained with bipolar cautery. A posterior limbal groove was created using a crescent knife and dissected anteriorly towards the cornea. A sharp point blade was used to create a paracentesis site at the 2 o'clock position. A 2.4 mm keratome was used to enter the anterior chamber through the groove. Viscoelastic was injected into the anterior chamber. An anterior capsulotomy was performed using Utrata forceps in a capsulorrhexis fashion. Hydrodissection and hydrodelineation were performed. Phacoemulsification was performed in yhrgka-wfj-tlqnnqd technique. A total of 9.37 CDE phaco time was used. Following this, the I/A unit was used to remove residual cortex. Viscoelastic was injected into the capsular bag. Intraocular lens model SN60WF, 21.0 diopters, serial number [id number] was placed in the capsular bag. The I/A unit was used to remove residual viscoelastic. The wound was seen to be watertight under high and low pressure, and no sutures were placed. The intraocular lens was well centered. The pressure was adjusted in the eye to normal pressure. The 4-0 black silk sutures and lid speculum were removed. The eye was shielded after Besivance drops were placed. The patient tolerated the procedure well and was sent to the Recovery Room in good condition. A drop of Cosopt was placed in the eye at the end of surgery. DICTATING PHYSICIAN: CHRISTINA BROUSSARD M.D. DICTATING PHYSICIAN: CHRISTINA BROUSSARD M.D. [id number] Y#: [id number] ID: [id number] JOB#: [id number] ACCT: [id number] cc:CHRISTINA BROUSSARD M.D. >
--- NOTE | 2019-04-06 10:05 | [facility] DISCHARGE SUMMARY E ---
[facility] Discharge Summary NAME: YANG AGUDELO AGE: 73Y ADMITTED: 04/06/2019 DISCHARGED: 04/06/2019 FINAL DIAGNOSIS: CATARACT, LEFT EYE HOSPITAL COURSE: The patient is a 73-year-old lady who underwent uneventful cataract extraction with intraocular lens implant, left eye on 04/06/19. She will be discharged to home. She is instructed to resume preoperative medications, take Tylenol as needed for discomfort, to keep her eye shielded, to use Besivance, Durezol and PROLENSA at 3 p.m. and 8 p.m., and to follow up in my office in 1 day. DICTATING PHYSICIAN: CHRISTINA BROUSSARD M.D. [id number] PHY#: [id number] ID: [id number] JOB#: [id number] ACCT: [id number] cc:CHRISTINA BROUSSARD M.D. >
== END 2019-04-06 08:34 | disposition home or self-care (01) ==
LOC: SC 06:25
PROVIDERS: ATTEND Ophthalmology
DX: H25.812 Combined forms of age-related cataract, left eye (principal); Z96.1 Presence of intraocular lens; I10 Essential (primary) hypertension; K21.9 Gastro-esophageal reflux disease without esophagitis; Z79.899 Other long term (current) drug therapy; E11.9 Type 2 diabetes mellitus without complications; Z79.84 Long term (current) use of oral hypoglycemic drugs; Z79.82 Long term (current) use of aspirin
CPT/HCPCS: 66984; 82962; 00142; V2632; J2250; J3490 ×4; A9270; J0171; 142

== ENCOUNTER → 2019-12-10 | Outpatient (CLI) | payer MEDICARE ==
--- NOTE | 2019-12-11 14:31 | WOMENS IMAGING REPORT ---
EXAM DESCRIPTION: 3D SCREENING MAMMO BILAT COMPLETED DATE/TIME: 12/10/2019 12:36 pm REASON FOR STUDY: Z12.31 SCREENING MAMMO Z12.31 ENCNTR SCREEN MAMMOGRAM FOR MALIGNANT NEOPLASM OF B RE COMPARISON: 2018 EXAM PARAMETERS: Views: Standard craniocaudal and mediolateral oblique views of each breast recorded using digital acquisition and breast tomosynthesis. Read with the assistance of CAD. .[facility], [facility] - The [employer] Version 9.2 LIMITATIONS: None. FINDINGS: No suspicious masses, suspicious calcifications or architectural distortion. No areas of c oncern. IMPRESSION: NEGATIVE MAMMOGRAM. BIRADS 1. BREAST DENSITY: a. The breasts are almost entirely fatty. BIRAD: ASSESSMENT: 1 NEGATIVE RECOMMENDATION: ROUTINE SCREENING Please continue yearly bilateral screening mammography/tomosynthesis in November 2020 COMMENT: The patient has been notified of the results by letter per SA requirements. Additional no tification policies are in place for contacting patient with suspicious or incomplete findings. Quality ID #225: The [employer] recommends an annual screening mammogram for women aged 40 years or over. This facility utilizes a reminder system to ensure that all patients receive reminder letters, and/or direct phone calls for appointments. This includes reminders for routine scr eening mammograms, diagnostic mammograms, or other Breast Imaging Interventions when appropriate. Th is patient will be placed in the appropriate reminder system. TECHNICAL DOCUMENTATION: FINDING NUMBER: (1) ASSESSMENT: (1) JOB ID: [id number] 2010 [employer]- All Rights Reserved Reading location - IP/workstation name: [email or web address]
== END ==
LOC: WI 11:20
PROVIDERS: ATTEND Internal Medicine
DX: Z12.31 Encounter for screening mammogram for malignant neoplasm of breast (principal)
CPT/HCPCS: 77063; 77067

== ENCOUNTER → 2019-12-28 | Outpatient (CLI) | payer MEDICARE ==
[2019-12-28 14:50] LABS: ABSOLUTE EOSINOPHILS # (AUTO) 0.1 10^3/uL (0.0-0.6); ABSOLUTE MONOCYTES (AUTO) 0.4 10^3/uL (0.1-1.4); ABSOLUTE NEUT (AUTO) 2.5 10^3/uL (1.7-8.2); BASOPHILS % (AUTO) 0.4 % (0-2); EOSINOPHILS % (AUTO) 1.3 % (0-6); HEMOGLOBIN 13.6 g/dL (12.0-15.5); LYMPHOCYTES % (AUTO) 40.2 % (13-45); MEAN CORPUSCULAR HEMOGLOBIN 31.7 pg (27.0-33.4); MEAN CORPUSCULAR HGB CONC 34.8 g/dL (32.0-36.0); MEAN CORPUSCULAR VOLUME 91 fl (80-97); MONOCYTES % (AUTO) 8.6 % (3-13); PLATELET COUNT 225 10^3/uL (150-450); RED BLOOD COUNT 4.29 10^6/uL (3.72-5.28); RED CELL DISTRIBUTION WIDTH 13.6 % (11.5-14.0); SEGMENTED NEUTROPHILS % (AUTO) 49.5 % (42-78); TOTAL CELLS COUNTED % (AUTO) 100 %; WHITE BLOOD COUNT 5.1 10^3/uL (4.0-10.5)
[2019-12-28 15:10] LABS: ALBUMIN 4.1 g/dL (3.5-5.0); ALKALINE PHOSPHATASE 92 U/L (38-126); ANION GAP 9 (5-19); ASPARTATE AMINO TRANSFERASE 18 U/L (14-36); BILIRUBIN,TOTAL 0.9 mg/dL (0.2-1.3); BLOOD UREA NITROGEN 13 mg/dL (7-20); CARBON DIOXIDE 29 mmol/L (22-30); CHLORIDE 101 mmol/L (98-107); CHOLESTEROL 214.59 mg/dL (0-200); GLUCOSE 137 mg/dL (75-110); POTASSIUM 4.5 mmol/L (3.6-5.0); TOTAL PROTEIN 7.3 g/dL (6.3-8.2); TRIGLYCERIDES 117 mg/dL (<150); URIC ACID 5.4 mg/dL (2.5-7.5)
[2019-12-28 15:21] LABS: DIRECT LDL 136 mg/dL (<100)
[2019-12-28 15:22] LABS: FREE T4 (FREE THYROXINE) 0.85 ng/dL (0.78-2.19)
[2019-12-28 15:36] LABS: THYROID STIMULATING HORMONE 3.05 uIU/mL (0.47-4.68)
[2019-12-30 09:37] LABS: CREATININE URINE 210.8 mg/dL (Not Estab.); MICROALBUMIN URINE 4.6 ug/mL (Not Estab.)
== END ==
LOC: OD 14:14
PROVIDERS: ATTEND Internal Medicine
DX: E11.42 Type 2 diabetes mellitus with diabetic polyneuropathy (principal)
CPT/HCPCS: 36415; 80053; 80061; 82043; 82570; 83036; 84439; 84443; 84550; 85025

== ENCOUNTER → 2020-07-31 | Outpatient (CLI) | payer MEDICARE ==
--- NOTE | 2020-07-31 18:18 | RADIOLOGY REPORT (SQ) ---
EXAM DESCRIPTION: CT ABD/PELVIS NO ORAL OR IV IMAGES COMPLETED DATE/TIME: 07/31/2020 5:28 pm REASON FOR STUDY: (N20.2)CALCULUS OF KIDNEY WITH CALCULUS OF URETER N20.2 CALCULUS OF KIDNEY WITH C ALCULUS OF URETER COMPARISON: 06/30/2017 TECHNIQUE: CT scan of the abdomen and pelvis performed without intravenous or oral contrast. Images reviewed with lung, soft tissue, and bone windows. Reconstructed coronal and sagittal MPR images revi ewed. All images stored on PACS. All CT scanners at this facility use dose modulation, iterative reconstruction, and/or weight based d osing when appropriate to reduce radiation dose to as low as reasonably achievable (ALARA). [facility]: Dose Right [facility]: CareDose [facility]: Dose Right [facility]: Teradose 4D [facility]: Smart Xi3 RADIATION DOSE: CT Rad equipment meets quality standard of care and radiation dose reduction techniq ues were employed. CTDIvol: 6.9 mGy. DLP: 332 mGy-cm.mGy. LIMITATIONS: None. FINDINGS: LOWER CHEST: No significant findings. No nodules or infiltrates. NON-CONTRASTED LIVER, SPLEEN, ADRENALS: Evaluation limited by lack of IV contrast. No identified sign ificant masses. PANCREAS: No masses. No peripancreatic inflammatory changes. GALLBLADDER: No identified stones by CT criteria. No inflammatory changes to suggest cholecystitis. RIGHT KIDNEY AND URETER: No suspicious masses. Assessment limited by lack of IV contrast. Coarse no nobstructing nephrolith, inferior collecting system. No hydronephrosis or hydroureter. LEFT KIDNEY AND URETER: No suspicious masses. Assessment limited by lack of IV contrast. Punctate n onobstructing nephrolith, inferior collecting system. No hydronephrosis or hydroureter. 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 AORTA AND RETROPERITONEUM: No aneurysm. No retroperitoneal masses or adenopathy. BOWEL AND PERITONEAL CAVITY: Scattered colonic diverticula without focal inflammatory changes. APPENDIX: Not visualized. PELVIS, BLADDER, AND ABDOMINAL WALL:No abnormal masses. No free fluid. Bladder normal. BONES: Degenerative changes are seen of the hips. 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 OTHER: No other significant finding. IMPRESSION: Nonobstructing nephrolithiasis. No acute findings. COMMENT: Quality ID # [id number]: Final reports with documentation of one or more dose reduction techniques (e.g., Automated exposure control, adjustment of the mA and/or kV according to patient size, use of iterative reconstruction technique) TECHNICAL DOCUMENTATION: JOB ID: [id number] 2010 [employer]- All Rights Reserved Reading location - IP/workstation name: [email or web address]
== END ==
LOC: RAD 16:27
PROVIDERS: ATTEND Internal Medicine
DX: N20.2 Calculus of kidney with calculus of ureter (principal)
CPT/HCPCS: 74176